=== PATIENT | male | born 1990 | race African-American/Black ===

== ENCOUNTER 2022-08-02 15:07 | Emergency (ER) | payer MEDICAID, OTHER ==
[~2022-08-02] VITALS: Ht 175.3 cm; Wt 103.8 kg
[2022-08-02 15:27] VITALS: BP 147/91
[2022-08-02 16:02] LABS: HEMATOCRIT. 49.4 % (42.0-52.0); HEMOGLOBIN. 16.9 g/dL (14.0-18.0); MEAN CORPUSCULAR HEMOGLOBIN 30.5 pg (28.0-32.0); MEAN CORPUSCULAR VOLUME 89.2 fL (80.0-94.0); MEAN PLATELET VOLUME 11.5 fl (7.4-10.4); PLATELET 157 x1000/uL (130-400); RED BLOOD CELL COUNT 5.54 mill/uL (4.7-6.1)
[2022-08-02 16:07] LABS: CHLORIDE 107 mEq/L (98-107)
[2022-08-02 16:20] LABS: PLATELET ESTIMATE NORMAL
[2022-08-02 17:39] LABS: CLARITY URINE CLEAR (CLEAR); COLOR URINE YELLOW (YELLOW); KETONES URINE NEGATIVE (NEGATIVE); LEUKOCYTE ESTERASE URINE NEGATIVE (NEGATIVE); NITRITE URINE NEGATIVE (NEGATIVE); OCCULT BLOOD URINE TRACE (NEGATIVE); PH URINE 6.5 (4.5-8.0); PROTEIN URINE NEGATIVE (NEGATIVE); SPECIFIC GRAVITY URINE 1.022 (1.005-1.030); UROBILINOGEN URINE 0.2 E.U./dL (0.2-1.0)
[2022-08-02] MEDS ORDERED: ONDA4TAB50 MT (17:49)
[2022-08-02] MEDS ORDERED: OMEP40CA20 MT (17:49)
== END 2022-08-02 18:08 | disposition home or self-care (01) ==
LOC: ER 15:07
DX: R10.9 Unspecified abdominal pain (principal); Z98.890 Other specified postprocedural states
CPT/HCPCS: 36415; 74176; 80053; 81003; 85025; 99284